=== PATIENT | female | born 1990 | race Caucasian/White ===

== ENCOUNTER 2017-10-17 18:15 | Emergency (ER) | payer SELFPAY ==
--- NOTE | 2017-10-17 18:43 | PDOC ---
Rapid Medical Evaluation Time Seen by Provider: 10/17/17 18:41 Medical Evaluation: Allergies Allergy/AdvReac Type Severity Reaction Status Date / Time No Known Allergies Allergy Verified 01/27/16 14:06 10/17/17 18:41 I have performed a brief in-person evaluation of this patient. The patient presents with a chief complaint of headache, non productive cough and abdominal pain since yesterday. Took no medication so far. Here today with 3 children with same symptoms Pertinent physical exam findings: NAD lungs clear bilat heart rrr non tender abdomen I have ordered the following: influenza swab rapid strep antipyretic The patient will proceed to the Ed for further evaluation. 10/17/17 21:45 Discharge Disposition - Diagnosis Influenza A - Discharge Dispostion Disposition: HOME Condition at time of disposition: Improved - Prescriptions Prescriptions: Oseltamivir Phosphate [Tamiflu] 75 mg PO BID #10 capsule - Referrals Referrals: Diego Tristan MD [Primary Care Provider] - - Patient Instructions Printed Discharge Instructions: DI for Influenza -- Adult Additional Instructions: Discharge Instructions: -You have Flu A -A prescription has been called to your pharmacy; please take entire 5 day course -Take TYlenol or Motrin for fever and body aches -Drink plenty of fluids and get lots of rest -Return to the ER with any worsening or concerning symptoms. - Post Discharge Activity Work/School Note: Back to Work
[2017-10-17] MEDS ORDERED: ACETAMINOPHEN 500 MG TABLET (FP) PO ONE (18:48)
[2017-10-17 19:10] VITALS: BP 121/74; BMI 27.4
--- NOTE | 2017-10-17 21:26 | PDOC ---
History of Present Illness - General Chief Complaint: Cold Symptoms Stated Complaint: COLD SYMPTOMS Time Seen by Provider: 10/17/17 18:41 History Source: Patient Exam Limitations: No Limitations - History of Present Illness Initial Comments: CHIEF COMPLAINT: 26 y/o febrile, tachycardic female c/o body aches, cough and fever since last night. HISTORY OF PRESENT ILLNESS: Patient denies earache, sore throat, runny nose, abd pain, diarrhea, constipation. Pt did not receive the flu shot this year. Her 3 children have similar symptoms. Vital signs on arrival are notable for pulse of 99 secondary to temp of 100.8. REVIEW OF SYSTEMS: GENERAL/CONSTITUTIONAL: +fever. +body aches. No weakness. No weight change. HEAD, EYES, EARS, NOSE AND THROAT: No change in vision. No ear pain or discharge. No sore throat. CARDIOVASCULAR: No chest pain or shortness of breath. RESPIRATORY: +cough. No wheezing or hemoptysis. GASTROINTESTINAL: No abd pain, vomiting, diarrhea, constipation. GENITOURINARY: No decrease in urination. MUSCULOSKELETAL: No joint or muscle swelling or pain. No neck or back pain. SKIN: No rash or easy bruising. NEUROLOGIC: No headache, vertigo, loss of consciousness, or loss of sensation. PHYSICAL EXAM: GENERAL: The patient is awake, alert, and appropriately interactive. Non toxic but ill appearing with intermittent cough. EYES: The pupils are equal, round, and reactive to light, with clear, conjunctiva. NOSE: The nose is clear without discharge. EARS: The ear canals and tympanic membranes are normal. THROAT: The oropharynx has erythematous tonsils without edema or exudate. The mucous membranes are moist. NECK: The neck is supple without adenopathy or meningismus. CHEST: The lungs are clear without crackles, or wheezes. HEART: Heart is a fast, regular rhythm, with normal S1 and S2, no murmurs. ABDOMEN: The abdomen is soft and nontender with normal bowel sounds. There is no organomegaly and no mass. There is no guarding or rebound. EXTREMITIES: Extremities are normal. NEURO: Behavior is normal for age. Tone is normal. SKIN: Skin is unremarkable without rash or swelling. There is no bruising, and there are no other signs of injury. Past History - Past Medical History Allergies/Adverse Reactions: Allergies Allergy/AdvReac Type Severity Reaction Status Date / Time No Known Allergies Allergy Verified 10/17/17 18:43 Home Medications: Ambulatory Orders Oseltamivir Phosphate [Tamiflu] 75 mg PO BID #10 capsule 10/17/17 COPD: No DVT: No - Immunization History Immunization Up to Date: Yes - Suicide/Smoking/Psychosocial Hx Smoking History: Never smoked Number of Cigarettes Smoked Daily: 2 Information on smoking cessation initiated: No Hx Alcohol Use: No Drug/Substance Use Hx: No Substance Use Type: None *Physical Exam - Vital Signs Last Vital Signs Temp Pulse Resp BP Pulse Ox 100.8 F H 99 H 17 121/74 99 10/17/17 18:43 10/17/17 18:43 10/17/17 18:43 10/17/17 18:43 10/17/17 18:43 ED Treatment Course - ADDITIONAL ORDERS Additional order review: 10/17/17 18:07 Influenza Types A,B Antigen (REUBEN) - Preliminary Nasopharyngeal Swab - Preliminary - Medications Given in the ED: ED Medications Discontinued Medications Generic Name Dose Route Start Last Admin Trade Name Saman PRN Reason Stop Dose Admin Acetaminophen 975 mg 10/17/17 18:48 10/17/17 18:59 Tylenol - PO 10/17/17 18:49 975 mg ONCE ONE Administration Medical Decision Making - Medical Decision Making A/P: 26 y/o febrile female with strep vs flu. Plan is as follows: 1. antipyretics 2. flu swab 3. rapid strep Flu A - positive rapid strep - negative patient given results. will send rx for tamiflu. INstructed her to take tylenol or motrin for pain/fever, drink plenty of fluids and get lots of rest. Pt instructed to return to the ER with any worsening or concerning symptoms. The patient verbalizes understanding of all instructions, has no further questions and is awaiting discharge *DC/Admit/Observation/Transfer Diagnosis at time of Disposition: Influenza A - Discharge Dispostion Disposition: HOME Condition at time of disposition: Improved - Prescriptions Prescriptions: Oseltamivir Phosphate [Tamiflu] 75 mg PO BID #10 capsule - Referrals Referrals: Diego Tristan MD [Primary Care Provider] - - Patient Instructions Printed Discharge Instructions: DI for Influenza -- Adult Additional Instructions: Discharge Instructions: -You have Flu A -A prescription has been called to your pharmacy; please take entire 5 day course -Take TYlenol or Motrin for fever and body aches -Drink plenty of fluids and get lots of rest -Return to the ER with any worsening or concerning symptoms. - Post Discharge Activity Forms/Work/School Notes: Back to Work
[2017-10-17 21:37] VITALS: TEMP 99.2
[2017-10-17 21:45] VITALS: PULSE 91
== END 2017-10-17 21:49 | disposition home or self-care (01) ==
LOC: JERFT 18:15
DX: J09.X2 Influenza due to identified novel influenza A virus with other respiratory manifestations (principal)
CPT/HCPCS: 87070; 87430; 87804; 99281-25

== ENCOUNTER 2019-06-24 08:49 | Emergency (ER) | payer SELFPAY ==
[2019-06-24 08:57] VITALS: BP 111/76; PULSE 79; TEMP 98.6; BMI 34.7
[2019-06-24] MEDS ORDERED: KETOROLAC TROMETHAMINE 30 MG/1 ML VIAL IM ONE (09:37)
--- NOTE | 2019-06-24 09:38 | PDOC ---
History of Present Illness - General Chief Complaint: Injury Stated Complaint: LT ANKLE INJURY Time Seen by Provider: 06/24/19 09:31 History Source: Patient Exam Limitations: No Limitations - History of Present Illness Initial Comments: 06/24/19 09:42 28 year old female with history of asthma, x1 and abdominal sleeve surgery presents with injury to left ankle since yesterday. Patient reports she was intoxicated and cannot recall details of injury but is assuming she twisted her ankle while walking up the stairs to her home. Complaining of pain and swelling of left ankle since then. Denies numbness or tingling in toes. Occurred: reports: yesterday Severity: Yes: mild Lower Extremity Pain Location: left: ankle Method of Injury: Yes: twisted Modifying Factors: improves with: immobilization, pain medication Lower Ext. Injury Location - Specific Injury Location Hips: bilateral hip: no evidence of injury Legs: bilateral: normal inspection Knees: bilateral no evidence of injury Ankle: left pain, left swelling Foot: left foot pain, left foot swelling Extremity Pain Location - Extremity Pain Location Extremity Pain Locations: left: ankle Past History - Travel Traveled outside of the country in the last 30 days: No Close contact w/someone who was outside of country & ill: No - Past Medical History Allergies/Adverse Reactions: Allergies Allergy/AdvReac Type Severity Reaction Status Date / Time No Known Allergies Allergy Verified 06/24/19 08:57 Home Medications: Ambulatory Orders Oseltamivir Phosphate [Tamiflu] 75 mg PO BID #10 capsule 10/17/17 Ibuprofen 600 mg PO TID #21 tablet 06/24/19 COPD: No DVT: No - Surgical History Abdominal Surgery: (gastric sleeve) - Immunization History Immunization Up to Date: Yes - Suicide/Smoking/Psychosocial Hx Smoking History: Current every day smoker Number of Cigarettes Smoked Daily: 5 Information on smoking cessation initiated: Yes Hx Alcohol Use: No Drug/Substance Use Hx: No Substance Use Type: None Review of Systems - Review of Systems Able to Perform ROS?: Yes Is the patient limited Ivorian proficient: No Constitutional: No: Chills, Diaphoresis, Fever Respiratory: No: Orthopnea, Shortness of Breath, Wheezing Cardiac (ROS): No: Chest Pain, Lightheadedness, Palpitations ABD/GI: No: Constipated, Poor Appetite, Poor Fluid Intake : No: Burning, Dysuria, Pain, Urgency Musculoskeletal: Yes: Joint Pain. No: Back Pain, Gout, Joint Swelling, Neck Pain Integumentary: No: Erythema *Physical Exam - Vital Signs Last Vital Signs Temp Pulse Resp BP Pulse Ox 98.6 F 79 18 111/76 99 06/24/19 08:54 06/24/19 08:54 06/24/19 08:54 06/24/19 08:54 06/24/19 08:54 - Physical Exam General Appearance: Yes: Nourished, Appropriately Dressed HEENT: positive: SHALONDA, Pharynx Normal Neck: positive: Supple. negative: Lymphadenopathy (R), Lymphadenopathy (L) Respiratory/Chest: positive: Lungs Clear Cardiovascular: positive: Regular Rhythm, Regular Rate Neurologic: positive: Fully Oriented, Alert Medical Decision Making - Medical Decision Making 06/24/19 09:46 28 year old female with history of asthma, x1 and abdominal sleeve surgery presents with injury to left ankle since yesterday. left ankle injury -waive urine states she has iud in place -xray of left ankle and foot -toradol for pain 06/24/19 12:30 wet read by me negative xray results fred wrap applied rx: ibuprofen *DC/Admit/Observation/Transfer Diagnosis at time of Disposition: Ankle injury Qualifiers: Encounter type: initial encounter Laterality: left Qualified Code(s): S99.912A - Unspecified injury of left ankle, initial encounter - Discharge Dispostion Disposition: HOME Condition at time of disposition: Good Decision to Admit order: No - Prescriptions Prescriptions: Ibuprofen 600 mg PO TID #21 tablet - Referrals Referrals: Diego Tristan MD [Primary Care Provider] - (call for appointment ) Julio Desai MD [Staff Physician] - Call tomorrow (call for appointment ) - Patient Instructions Printed Discharge Instructions: Ankle Sprain Additional Instructions: Please apply ice compress to area for 20 to 30 minutes 3 to 4 times daily Keep leg elevated at rest Remove fred wrap for showering and sleeping Do not use crutches on the stairs Call orthopedic for appointment - Post Discharge Activity Forms/Work/School Notes: Back to Work
[2019-06-24] MEDS ORDERED: KETOROLAC TROMETHAMINE 30 MG/1 ML VIAL ONE (09:43)
== END 2019-06-24 12:56 | disposition home or self-care (01) ==
LOC: JERFT 08:49
PROC: 3E0233Z Introduction of Anti-inflammatory into Muscle, Percutaneous Approach (ICD-10-PCS; principal; 2019-06-24)
DX: S99.812A Other specified injuries of left ankle, initial encounter (principal); X50.1XXA Overexertion from prolonged static or awkward postures, initial encounter; Y93.89 Activity, other specified; Y92.038 Other place in apartment as the place of occurrence of the external cause; Y99.8 Other external cause status; J45.909 Unspecified asthma, uncomplicated; Z98.84 Bariatric surgery status
CPT/HCPCS: 73610-TC-LT-FY; 73630-TC-LT; 99282-25

== ENCOUNTER 2020-06-18 19:09 | Emergency (ER) | payer OTHER ==
[2020-06-18 19:48] VITALS: BP 118/79; PULSE 66; TEMP 98.6; BMI 41.8
--- OUTSIDE RECORDS SUMMARY | 2020-06-18 19:57 | XMS ---
:1990 Author Organization [facility] Support Name Relationship Address Phone MLKJR FOOD Unavailable [address] [place] [address] BRAJERRYAM, KENNA FRIEND [address] [facility] [address] [place] [address] COLONESTHERA SISTER [address] [facility] [address] [place] [address] colonpawanyna Unavailable [address] [place] [address] Re-disclosure Warning The records that you are about to access may contain information from federally- assisted alcohol or drug abuse programs. If such information is present, then the following federally mandated warning applies: This information has been disclosed to you from records protected by federal confidentiality rules (42 CFR part 2). The federal rules prohibit you from making any further disclosure of this information unless further disclosure is expressly permitted by the written consent of the person to whom it pertains or as otherwise permitted by 42 CFR part 2. A general authorization for the release of medical or other information is NOT sufficient for this purpose. The Federal rules restrict any use of the information to criminally investigate or prosecute any alcohol or drug abuse patient.The records that you are about to access may contain highly sensitive health information, the redisclosure of which is protected by Article 27-F of the [facility] Public Health law. If you continue you may haveaccess to information: Regarding HIV / AIDS; Provided by facilities licensed or operated by the [facility] Office of Mental Health; or Provided by the [facility] Office for People With Developmental Disabilities. If such information is present, then the following [facility] mandated warning applies: This information has been disclosed to you from confidential records which are protected by state law. State law prohibits you from making any further disclosure of this information without the specific written consent of the person to whom it pertains, or as otherwise permitted by law. Any unauthorized further disclosure in violation of state law may result in a fine or half-way sentence or both. A general authorization for the release of medical or other information is NOT sufficient authorization for further disclosure. Allergies and Adverse Reactions Type Description Substance Reaction Status Data Source(s ) No Known No Known Allergies No Known eCW3 ( [place] [facility]erg[facility]) No Known No Known Allergies No Known eCW3 ( [place] Allerg[facility]erg[facility]) Encounters Encounter Providers Location Date Indications Data Source(s ) Outpatient [facility] 07/01/2019 eCW3 ([facility] 12:00:00 AM Health Care) EDT - 07/01/2019 12:00:00 AM EDT Outpatient [facility] 02/22/2019 eCW3 ([facility] 12:00:00 AM Health Care) EDT - 02/22/2019 12:00:00 AM EDT Immunizations Vaccine Date Status Description Data Source(s) New in 2011. IIV4 08/31/2018 completed eCW3 ([place] 01:59:00 PM [facility]) MMR 05/17/2018 completed eCW3 ([place] 01:03:00 PM [facility]) MMR 04/16/2018 completed eCW3 ([place] 03:29:00 PM [facility]) As of June 1999, a 07/26/2016 completed eCW3 ([place] 2-dose hepatitis B 01:02:00 PM [facility]) schedule for adolescents (11-15 year olds) was FDA approved for Merck's Recombivax HB adult formulation. Use code 43 for the 2-dose. This code should be used for any use of standard adult formulation of hepatitis B vaccine. HPV9 07/26/2016 completed eCW3 ([place] 01:02:00 PM [facility]) IIV3. This vaccine code 07/26/2016 completed eCW3 ([place] is one of two which 01:02:00 PM EDT [facility]) replace CVX 15, influenza, split virus. As of June 1999, a 10/17/2015 completed eCW3 ([place] 2-dose hepatitis B 11:14:00 AM [facility]) schedule for adolescents (11-15 year olds) was FDA approved for Merck's Recombivax HB adult formulation. Use code 43 for the 2-dose. This code should be used for any use of standard adult formulation of hepatitis B vaccine. HPV9 10/17/2015 completed eCW3 ([place] 11:14:00 AM [facility]) As of June 1999, a 05/21/2015 completed eCW3 ([place] 2-dose hepatitis B 04:21:00 PM [facility]) schedule for adolescents (11-15 year olds) was FDA approved for Merck's Recombivax HB adult formulation. Use code 43 for the 2-dose. This code should be used for any use of standard adult formulation of hepatitis B vaccine. Tdap 04/28/2015 completed eCW3 ([place] 03:41:00 PM [facility]) Medications Medication Brand Start Product Dose Route Administrative Pharmacy [facility] Indications Reaction Description Data Name Date Form Instructions Instructions Source(s) KARMA Ankle KARMA 07/01/ active KARMA Ankle e CW3 Brace - Ankle 2019 Brace - ([place] [facility]ace 12:00: [place] - 00 AM Health EDT Care) KARMA Ankle KARMA 07/01/ active KARMA Ankle e CW3 Brace - Ankle 2019 Brace - ([place] Brace 12:00: [place] - 00 AM Health EDT Care) Multivitami Multiv 09/11/ active Multivi tamin eCW3 n Adult - itamin 2018 Adult - ([place] Adult 12:00: [place] - 00 AM Health EST Care) Multivitami Multiv 09/11/ active Multivi tamin eCW3 n Adult - itamin 2018 Adult - ([place] Adult 12:00: [place] - 00 AM Health EST Care) Cholecalcif UNK 1.0 active Cholecalc ricky eCW3 [place] 1000 2016 {caps rol 1000 ([place] UNIT 12:00: ule} UNIT [place] 00 AM Health EDT Care) Cholecalcif UNK 1.0 active Cholecalc ricky eCW3 [place] 1000 2016 {caps rol 1000 ([place] UNIT 12:00: [facility]} UNIT [place] 00 AM Health EDT Care) Cyclobenzap Cyclob 1.0 suspend Cyclob enzapr eCW3 rine enzapr 2016 {tabl ed ine HCl 10 ([place] hydrochlori ine 12:00: et_as mg [place] de 10 MG HCl 10 00 AM _need Health Oral Tablet mg EDT ed} Care) Cyclobenzap rine HCl 10 mg Cyclobenzap Cyclob 1.0 suspend Cyclob enzapr eCW3 rine enzapr 2016 {tabl ed ine HCl 10 ([place] hydrochlori ine 12:00: et_as mg [place] de 10 MG HCl 10 00 AM _need Health Oral Tablet mg EDT ed} Care) Cyclobenzap rine HCl 10 mg Ortho UNK 1.0 suspend Ortho eCW3 Tri-Cyclen 2015 {tabl ed Tri-Cyclen ([place] () 12:00: et} () [place] 0.18/0.215/ 00 AM 0.18/0.215/0 Health 0.25 MG-35 EST .25 MG-35 Care ) MCG MCG Ortho UNK .0 suspend Ortho eCW3 Tri-Cyclen 2015 {tabl ed Tri-Cyclen ([facility] () 12:00: et} () [place] 0.18/0.215/ 00 AM 0.18/0.215/0 Health 0.25 MG-35 EST .25 MG-35 Care ) MCG MCG Multivitami Multiv 1.0 active Multivi tamin eCW3 ns - itamin 2014 {tabl s - ([place] - 12:00: et} [place] 00 AM Health EDT Care) Multivitami Multiv 1.0 active Multivi tamin eCW3 ns - itamin 2014 {tabl s - ([place] s - 12:00: et} [place] 00 AM Health EDT Care) Calcium 600 Calciu 1.0 active Calcium 6 00 eCW3 MG m 600 {tabl MG ([place] MG et_wi [place] th_ri Health als} Care) Ibuprofen Ibupro 1.0 suspend Ibuprofen eCW3 600 MG Oral fen {tabl ed 600 MG ([place] Tablet 600 MG et} [facility] Care) Ibuprofen Ibupro 1.0 suspend Ibuprofen eCW3 600 MG Oral fen {tabl ed 600 MG ([place] Tablet 600 MG et} [facility] Care) Calcium 600 Calciu 1.0 active Calcium 6 00 eCW3 MG m 600 {tabl MG ([place] MG et_wi [place] th_me Health als} Care) Insurance Providers Payer name Policy type Policy ID Covered Covered democrat's Policy P lito / Coverage democrat ID relationship to Rebollar Inf ormation type rebollar [place] [id number] SP [id number] COMM PLAN SELF PAY SP INSURANCE Problems, Conditions, and Diagnoses Code Display Name Description Problem Type Effective Dates Data Source(s) M54.42 Acute left-sided Acute left-sided Problem 09/11/2018 eC W3 ([place] low back pain with low back pain 12:00:[address] [facility] left-sided with left-sided Care) sciatica sciatica G43.001 Migraine without Migraine without Problem 08/31/2018 eC W3 ([place] aura and with aura and with 12:00:00 AM EST [facility] Health status status Care) migrainosus, not migrainosus, not intractable intractable Z11.3 Screening for STD Screening for STD Problem 06/22/2017 eCW3 ([place] (sexually (sexually 12:00:00 AM [facility] transmitted transmitted Care) disease) disease) E55.9 Vitamin D Vitamin D Problem 06/22/2017 eCW3 ([place] deficiency deficiency 12:00:00 AM [facility] Care) Z00.00 Encounter for Encounter for Problem 06/01/2017 eCW3 ( [facility] general adult general adult 12:00:00 AM [facility] medical medical Care) examination examination without abnormal without abnormal findings 18+ findings 18+ M54.5 Right-sided low Right-sided low Problem 06/01/2017 eCW3 ([place] back pain without back pain without 12:00:00 AM [facility] sciatica, sciatica, Care) unspecified unspecified chronicity chronicity E66.9 Obesity Obesity Problem 07/26/2016 eCW3 ([place] 12:00:00 AM [facility] Care) 493.92 Exacerbation of Asthma attacks Problem 06/19/2015 eCW3 ([place] asthma lasting more than 12:00:[address] [facility] 24 hours Care) 268.9 Vitamin D Vitamin D Problem 05/21/2015 eCW3 ([place] deficiency deficiency 12:00:00 AM [facility] Care) 278.01 Morbid obesity Morbid obesity Problem 04/28/2015 eCW3 ( [place] with BMI of 12:00:00 AM EDT [place] He alth 45.0-49.9, adult Care) Social History Code Duration Value Status Description Data Source(s ) Smoking 01/16/2020 Current Smoker completed Current Smoker eCW3 ( [facility] 12:00:00 AM [facility] re) Smoking 01/16/2020 Current Smoker completed Current Smoker eCW3 ( [facility] 12:00:00 AM [facility] re) Current Smoker completed Current Smoker eCW3 ( [facility]) Current Smoker completed Current Smoker eCW3 ( [facility]) Vital Signs ID Date Data Source UNK Name Value Range Interpretation Code Description Data Source(s) Diastolic blood 62 mm[Hg] 62 mm[Hg] eCW3 ([facility]) Systolic blood 96 mm[Hg] 96 mm[Hg] eCW3 ([facility]) Body temperature 98.5 [degF] 98.5 [degF] eCW3 ( [facility]) Body mass index 35.45 kg/m2 35.45 kg/m2 eCW3 ([place] (BMI) [Ratio] [facility]) Body weight 197 [lb_av] 197 [lb_av] eCW3 ([facility]) Body height 62.50 [in_i] 62.50 [in_i] eCW3 ([facility]) Diastolic blood 67 mm[Hg] 67 mm[Hg] eCW3 ([facility]) Systolic blood 118 mm[Hg] 118 mm[Hg] eCW3 ([facility]) Body temperature 98.1 [degF] 98.1 [degF] eCW3 ( [facility]) Body mass index 34.19 kg/m2 34.19 kg/m2 eCW3 ([place] (BMI) [Ratio] [facility]) Body weight 190 [lb_av] 190 [lb_av] eCW3 ([facility]) Body height 62.50 [in_i] 62.50 [in_i] eCW3 ([facility])
[2020-06-18] MEDS ORDERED: NAPROXEN 500 MG TABLET PO ONE (20:54)
[2020-06-18] MEDS ORDERED: NAPROXEN 500 MG TABLET ONE (20:57)
--- NOTE | 2020-06-18 21:09 | PDOC ---
History of Present Illness - General Chief Complaint: Pain, Acute Stated Complaint: RT LEG PAIN Time Seen by Provider: 06/18/20 19:58 History Source: Patient Exam Limitations: Clinical Condition - History of Present Illness Initial Comments: 06/18/20 21:05 Patient with no significant past medical history present with complaint of pain to lateral aspect of right ankle and medial aspect of right knee status post fall a week ago. Patient report she tripped on a curbside and fell twisting right ankle. Patient reported the police was at the scene and then called EMS but patient refused to seek medical attention as she had no real pain to the ankle. Patient reports started having knee pain 2 days ago which is worse with ambulation. Denies any new trauma or injury to the knee. Patient report taking Tylenol for pain with minimal improvement. Denies any other symptoms Occurred: reports: last week Past History - Medical History Allergies/Adverse Reactions: Allergies Allergy/AdvReac Type Severity Reaction Status Date / Time No Known Allergies Allergy Verified 06/24/19 08:57 Home Medications: Ambulatory Orders Oseltamivir Phosphate [Tamiflu] 75 mg PO BID #10 capsule 10/17/17 Ibuprofen 600 mg PO TID #21 tablet 06/24/19 Leg Brace [Ankle Brace] 1 each MC DAILY #1 each 06/18/20 Leg Brace [Knee Brace] 1 each MC DAILY #1 each 06/18/20 Naproxen 500 mg PO BID PRN #20 tablet 06/18/20 COPD: No DVT: No - Surgical History Abdominal Surgery: (gastric sleeve) - Reproductive History Is Patient Now?: No - Immunization History Immunization Up to Date: Yes - Psycho-Social/Smoking History Smoking History: Current every day smoker Number of Cigarettes Smoked Daily: 4 Information on smoking cessation initiated: No - Substance Abuse Hx (Audit-C & DAST Scrn) How often the patient has a drink containing alcohol: 4 0r more times/wk Number of drinks the patient has on a typical day: 3 or 4 How often the patient has six or more drinks on one occasion: Never Score: In Men: 4 or > Positive; In Women: 3 or > Positive: 5 Screen Result (Pos requires Nsg. Audit-10AR): Positive In the last yr the pt used illegal drug/Rx for NonMed reason: No Score: Yes response is considered Positive: 0 Screen Result (Positive result requires Nsg. DAST-10): Negative Review of Systems - Review of Systems Able to Perform ROS?: Yes Is the patient limited Faroese proficient: No Constitutional: No: Chills, Fever, Malaise HEENTM: No: Symptoms Reported, See HPI, Eye Pain, Blurred Vision, Tearing, Recent change in vision, Double Vision, Cataracts, Ear Pain, Ocular Prothesis, Ear Discharge, Nose Pain, Nose Congestion, Tinnitus, Nose Bleeding, Hearing Loss, Throat Pain, Throat Swelling, Mouth Pain, Dental Problems, Difficulty Swallowing, Mouth Swelling, Other Respiratory: No: Symptoms reported, See HPI, Cough, Orthopnea, Shortness of Breath, SOB with Exertion, SOB at Rest, Stridor, Wheezing, Productive cough, Hemoptysis, Other Cardiac (ROS): No: Symptoms Reported Musculoskeletal: Yes: Symptoms Reported, See HPI, Joint Pain (righ ankle pain), Muscle Pain (right knee pain). No: Muscle Weakness Neurological: No: Numbness, Paresthesia, Weakness, Dizziness All Other Systems: Reviewed and Negative *Physical Exam - Vital Signs Last Vital Signs Temp Pulse Resp BP Pulse Ox 98.6 F 66 19 118/79 99 06/18/20 19:41 06/18/20 19:41 06/18/20 19:41 06/18/20 19:41 06/18/20 19:41 - Physical Exam 06/18/20 21:08 GENERAL: Well developed, well nourished. Awake and alert in mild acute distress. PULMONARY: No evidence of respiratory distress. MUSCULOSKELETAL : moderate tenderness over lateral malleolus of right ankle with mild ecchymosis to lateral aspect of right ankle. Mild tenderness over medial collateral ligament of right knee with no visible ecchymosis. No tenderness to lateral aspect of anterior aspect of right knee. No tenderness to right tib- fib. Negative anterior and posterior drawer test of right knee and ankle. No visible deformity SKIN: Warm and dry. Normal capillary refill. No rashes. No jaundice. NEUROLOGICAL: Alert, awake, appropriate. No motor deficits in the lower extremities. Gait is normal without ataxia. PSYCHIATRIC: Cooperative. Good eye contact. Appropriate mood and affect. General Appearance: Yes: Nourished, Appropriately Dressed, Mild Distress ED Treatment Course - RADIOLOGY Radiology Studies Ordered: Category Date Time Status ANKLE-RIGHT [RAD] Stat Radiology 06/18/20 20:54 Ordered KNEE 3 POS-RIGHT [RAD] Stat Radiology 06/18/20 20:05 Taken Medical Decision Making - Medical Decision Making 06/18/20 21:07 Patient with no significant past medical history present with complaint of pain to lateral aspect of right ankle and medial aspect of right knee status post fall a week ago. Patient report she tripped on a curbside and fell twisting right ankle. Patient reported the police was at the scene and then called EMS but patient refused to seek medical attention as she had no real pain to the ankle. Patient reports started having knee pain 2 days ago which is worse with ambulation. Denies any new trauma or injury to the knee. Patient report taking Tylenol for pain with minimal improvement. Denies any other symptoms Exam significant for moderate tenderness over lateral malleolus of right ankle with mild ecchymosis to lateral aspect of right ankle. Mild tenderness over medial collateral ligament of right knee with no visible ecchymosis. No tenderness to lateral aspect of anterior aspect of right knee. No tenderness to right tib-fib. Negative anterior and posterior drawer test of right knee and ankle. No visible deformity. X-ray of right knee shows no acute abnormality. Patient symptoms likely knee strain. Naproxen 500 mg p.o. ordered for pain. Will also order ankle x-ray to rule out ankle fracture 06/18/20 21:31 Ankle x-ray shows no acute fracture or dislocation. Right knee wrapped with Chase bandage. Patient stable for discharge on naproxen as needed for pain with prescription for ankle and knee brace with advised to do hot compresses with orthopedics follow-up Discharge - Discharge Information Problems reviewed: Yes Clinical Impression/Diagnosis: Right knee sprain Qualifiers: Encounter type: initial encounter Involved ligament of knee: unspecified ligament Qualified Code(s): S83.91XA - Sprain of unspecified site of right knee, initial encounter Right ankle sprain Qualifiers: Encounter type: initial encounter Involved ligament of ankle: unspecified ligament Qualified Code(s): S93.401A - Sprain of unspecified ligament of right ankle, initial encounter Condition: Stable Disposition: HOME - Admission No - Additional Discharge Information Prescriptions: Leg Brace [Ankle Brace] 1 each MC DAILY #1 each Leg Brace [Knee Brace] 1 each MC DAILY #1 each Naproxen 500 mg PO BID PRN #20 tablet PRN Reason: pain - Follow up/Referral Referrals: Tommy Boykin DO [Staff Physician] - - Patient Discharge Instructions Patient Printed Discharge Instructions: DI for Ankle Sprain Additional Instructions: X-ray of your ankle and right knee shows no acute fracture or dislocation. Your pain is likely from ankle knee sprain. Take prescribed medication as needed for pain. Use prescribed ankle and knee support brace as prescribed. Apply heat 2- 3 times a day as needed for knee pain. Follow-up with referred orthopedics if symptoms persist for more than 4 days - Post Discharge Activity Work/Back to School Note: Back to Work
== END 2020-06-18 21:29 | disposition home or self-care (01) ==
LOC: JERFT 19:09
DX: S83.91XA Sprain of unspecified site of right knee, initial encounter (principal); S93.401A Sprain of unspecified ligament of right ankle, initial encounter
CPT/HCPCS: 73562-TC-RT-FY; 73610-TC-RT-FY; 99284-25

== ENCOUNTER 2020-09-25 22:23 | Emergency (ER) | payer OTHER ==
[2020-09-25 22:29] VITALS: BMI 34.8
[2020-09-25] MEDS ORDERED: morphine CARPU-JECT 2 MG/1 ML DISP.SYRIN IVPUSH ONE (23:08)
[2020-09-25] MEDS ORDERED: ONDANSETRON 4 MG/2 ML VIAL IVPUSH ONE (23:09)
[2020-09-25] MEDS ORDERED: LACTATED RINGERS SOLUTION 1000 ML INFUS.BAG IV ONE (23:09)
[2020-09-25] MEDS ORDERED: ONDANSETRON 4 MG/2 ML VIAL ONE (23:37)
[2020-09-25] MEDS ORDERED: MORPHINE SULFATE 2 MG/ML VIAL ONE (23:37)
[2020-09-25 23:51] LABS: BASO % 0.5 % (0-2.0); EOS % 1.6 % (0-4.5); HEMATOCRIT 46.3 % (32.4-45.2); HEMOGLOBIN 15.2 GM/dL (10.7-15.3); LYMPH % 21.7 % (8-40); MCH 35.6 pg (25.7-33.7); MCHC 32.9 g/dl (32.0-36.0); MEAN CELL VOLUME 108.1 fl (80-96); MONO % 8.1 % (3.8-10.2); NEUT % 68.1 % (42.8-82.8); RBC 4.28 M/mm3 (3.60-5.2); RDW 16.2 % (11.6-15.6); WHITE BLOOD COUNT 7.5 K/mm3 (4.0-10.0)
[2020-09-25 23:58] LABS: INR 0.86 (0.83-1.09); PROTHROMBIN TIME (PATIENT) 10.6 SEC (9.7-13.0)
[2020-09-26 00:01] LABS: ACTIVATED PTT 32.8 SECONDS (25.2-36.5)
[2020-09-26 00:40] LABS: CHLORIDE 104 mmol/L (98-107); POTASSIUM 3.5 mmol/L (3.5-5.1); SODIUM 142 mmol/L (136-145)
[2020-09-26 00:42] LABS: CALCIUM 9.8 mg/dL (8.5-10.1)
[2020-09-26 00:43] LABS: ALBUMIN 3.7 g/dl (3.4-5.0); ANION GAP 8 MMOL/L (8-16); BLOOD UREA NITROGEN 13.7 mg/dL (7-18); CO2 29 mmol/L (21-32); GLUCOSE,RANDOM 81 mg/dL (74-106)
[2020-09-26 00:46] LABS: CREATININE 1.1 mg/dL (0.55-1.3); SGOT/AST 28 U/L (15-37); SGPT/ALT 42 U/L (13-61)
[2020-09-26 00:47] LABS: BILIRUBIN,TOTAL 0.2 mg/dL (0.2-1)
[2020-09-26 00:49] LABS: ALK PHOS 84 U/L (45-117)
[2020-09-26] MEDS ORDERED: ACETAMINOPHEN 325 MG TABLET (FP) PO ONE (01:35)
[2020-09-26] MEDS ORDERED: LACTATED RINGERS SOLUTION 1000 ML INFUS.BAG IV ONE (01:36)
[2020-09-26] MEDS ORDERED: ACETAMINOPHEN 325 MG TABLET (FP) ONE (01:45)
[2020-09-26 07:11] VITALS: BP 134/61; PULSE 63; TEMP 98.5
[2020-09-26 09:52] LABS: PLATELET COUNT 191 K/MM3 (134-434)
== END 2020-09-26 07:34 | disposition home or self-care (01) ==
LOC: JER 22:23
PROC: 3E033NZ Introduction of Analgesics, Hypnotics, Sedatives into Peripheral Vein, Percutaneous Approach (ICD-10-PCS; principal; 2020-09-25)
PROC: 3E033GC Introduction of Other Therapeutic Substance into Peripheral Vein, Percutaneous Approach (ICD-10-PCS; 2020-09-25)
DX: S99.922A Unspecified injury of left foot, initial encounter (principal)
CPT/HCPCS: 36415; 70450-TC; 73070-TC-LT-FY; 73610-TC-LT-FY; 73630-TC-LT; 80053; 82550; 83605; 84484; 84702; 85025; 85610; 85730; 86850; 86900; 86901; 99285-25

== ENCOUNTER 2022-11-07 16:27 | Emergency (ER) | payer BC, OTHER ==
[2022-11-07 16:55] VITALS: BP 141/100; PULSE 100; RESP 18; TEMP 99; BMI 28.3
== END 2022-11-07 18:13 | disposition home or self-care (01) ==
LOC: JER 16:27
DX: R05.1 Acute cough (principal); J02.9 Acute pharyngitis, unspecified; M79.10 Myalgia, unspecified site
CPT/HCPCS: 0241U-QW; 99283-25